=== PATIENT | male | born 1940 | race Caucasian/White ===

== ENCOUNTER 2017-04-21 14:19 | Day surgery (SDC) | payer OTHER ==
[2017-04-20 09:42] VITALS: BMI 27.8
[2017-04-21] MEDS ORDERED: mitoMYcin 40 MG/50 ML DISP.SYRIN (FOR OR USE) IC ONE (14:30)
--- NOTE | 2017-04-21 16:38 | HP ---
History & Physical Update - History History: No Change - Physical Physical: No Change - Assessment Assessment: No Change - Plan Plan: No Change
[2017-04-21] MEDS ORDERED: ACETAMINOPHEN 1000 MG/100 ML VIAL (NON FORMULARY) IVPB ONE ×2 (16:40→18:44)
[2017-04-21] MEDS ORDERED: DEXTROSE 5%-0.45% SALINE 1,000 ML IV SCH (16:45)
[2017-04-21] MEDS ORDERED: ceFAZolin SODIUM 1 GM VIAL IVPB ONE (17:22)
[2017-04-21] MEDS ORDERED: METHYLENE BLUE 1% 10 MG/1 ML VIAL IVPUSH ONE (17:39)
[2017-04-21] MEDS ORDERED: ONDANSETRON 4 MG/2 ML VIAL IVPUSH PRN (18:17)
[2017-04-21] MEDS ORDERED: oxyCODONE HCL 5 MG TABLET PO PRN (18:17)
[2017-04-21] MEDS ORDERED: PROMETHAZINE HCL 25 MG/1 ML VIAL IVPUSH PRN (18:17)
[2017-04-21] MEDS ORDERED: ACETAMINOPHEN INJECTION 100 ML IVPB ONE ×2 (18:45→18:46)
[2017-04-21 20:38] VITALS: BP 131/80; PULSE 76; TEMP 98.1
--- NOTE | 2017-04-22 07:58 | OP ---
DATE OF OPERATION: 04/21/2017 PREOPERATIVE DIAGNOSIS: Bladder cancer, left lateral wall, trigone. POSTOPERATIVE DIAGNOSIS: Bladder cancer, left lateral wall, trigone. PROCEDURE: Cystoscopy, transurethral resection of bladder tumor, large; and instillation of Mitomycin. ANESTHESIA: General, Jeffery Gibson MD. ESTIMATED BLOOD LOSS: 20 mL FINDINGS: A large tumor over the left hemitrigone and left lateral wall. SPECIMENS: Bladder tumor and base of bladder tumor. DRAINS: A Huntley catheter. SURGEON: Nathan Douglass MD PREOPERATIVE INDICATIONS: The patient is a 76-year-old male with recently diagnosed, low , medium-grade prostate cancer. During pre-radiating imaging, he was found to have a large bladder tumor. There also was left-sided hydronephrosis on the CT scan. He comes to the OR today for resection. DESCRIPTION OF OPERATION: The patient was brought to the OR, placed on the table in supine position, given general anesthesia and IV antibiotics, and placed in the modified lithotomy position. The groin was prepped and draped sterilely. Cystoscopy was performed. The urethra appeared to be unremarkable. The prostate was mildly enlarged. The bladder itself had mild trabeculations. However, a large tumor was seen overlying the left hemitrigone. The right ureteral orifice was visualized. However, the left ureters could not be seen. Patient was found to have [address] Methylene blue was given. However, no efflux was ever seen. This tumor was resected slowly from its top down to its base. There appeared to be tumor continuing into what appeared to be the distal ureter. Segments of muscle were also resected. Good hemostasis was achieved. No evidence of bladder perforation was noted. Belly remained soft. All pieces were irrigated out. Scope was removed. A Huntley catheter was placed, and through that, 50 mL of 40 mg of Mitomycin in sterile water was instilled, and the Huntley was clamped. Patient was woken up. Genet [id number]
--- NOTE | 2017-04-25 15:26 | PATH ---
Surgical Pathology Report Patient Name: KAREN FUENTES [facility]. Rec. #: [id number] /Age/Gender: 1940 (Age: 76) / M Account: [id number] Location: [facility] SURGICAL Taken: 04/21/2017 Received: 04/24/2017 Reported: 04/25/2017 Physicians: Nathan Douglass M.D. Specimen(s) Received A: BLADDER TUMOR TUR B: BASE OF BLADDER TUMOR Clinical History Bladder tumor Final Diagnosis A. BLADDER TUMOR, TUR: PREDOMINANTLY HIGH GRADE PAPILLARY UROTHELIAL CARCINOMA. LAMINA PROPRIA INVASION: NOT IDENTIFIED. MUSCULARIS PROPRIA (DETRUSOR): PRESENT, FREE OF CARCINOMA. CARCINOMA IN SITU (CIS): NOT IDENTIFIED. B. BASE OF BLADDER TUMOR, TUR: PREDOMINANTLY HIGH GRADE PAPILLARY UROTHELIAL CARCINOMA. LAMINA PROPRIA INVASION: NOT IDENTIFIED MUSCULARIS PROPRIA (DETRUSOR): PRESENT, FREE OF CARCINOMA. CARCINOMA IN SITU (CIS): NOT IDENTIFIED. Comment: The case was discussed with Dr. Douglass on 04/25/17. Electronically Signed Mehran Alva M.D. Gross Description A. Received in formalin labeled "bladder tumor" is a 5.5 x 5.5 x 0.9 cm aggregate of graves soft tissue fragments admixed with blood clot. The formalin is filtered and the specimen is entirely submitted in 6 cassettes. B. Received in formalin labeled "base of bladder tumor" is a 1.9 x 1.8 x 0.3 cm aggregate of graves soft tissue fragments. The formalin is filtered and the specimen is entirely submitted in one cassette. 04/24/2017 saudi04/24/2017
== END 2017-04-21 23:46 | disposition home or self-care (01) ==
LOC: JASU-SURG 14:19 → J6S 20:30 → JASU-SURG 23:46
PROVIDERS: ATTEND Urology
PROC: 3E0M705 Introduction of Other Antineoplastic into Peritoneal Cavity, Via Natural or Artificial Opening (ICD-10-PCS; 2017-04-21)
PROC: 0TBB8ZX Excision of Bladder, Via Natural or Artificial Opening Endoscopic, Diagnostic (ICD-10-PCS; principal; 2017-04-21 16:00)
DX: C67.8 Malignant neoplasm of overlapping sites of bladder (principal)
CPT/HCPCS: 51720; 52240; J9280; 88307-TC; 94760

== ENCOUNTER 2018-01-10 10:25 | Day surgery (SDC) | payer OTHER ==
[2018-01-09 09:15] VITALS: BMI 25.7
--- NOTE | 2018-01-10 11:43 | HP ---
[facility] - Chief Complaint Chief Complaint: bladder cancer, hydronephrosis History of Present Illness: h/o bladder tumor obstructing his left ureter with hydronephrosis. He is here for TURBT and stent change History Source: Patient, Medical Record Limitations to Obtaining History: No Limitations - Past Medical History Allergies/Adverse Reactions: Allergies Allergy/AdvReac Type Severity Reaction Status Date / Time No Known Allergies Allergy Verified 01/10/18 10:50 Pulmonary: No: Asthma, Bronchitis, Cancer, COPD, O2 Dependent, Pneumonia, Previously Intubated, Pulmonary Embolus, Pulmonary Fibrosis, Sleep Apnea, Other Gastrointestinal: No: Ascites, Cancer, Constipation, Crohn's Disease, Diverticulitis, Diverticulosis, Esophageal Varices, Gastritis, GERD, GI Bleed, Hemorrhoids, Hiatal Hernia, Inflamatory Bowel Disease, Irritable Bowel Disease, Pancreatitis, Peptic Ulcer Disease, Ulcerative Colitis, Other Hepatobiliary: Yes: Other (liver mass) Renal/: Yes: Cancer (prostate cancer) Heme/Onc: Yes: Cancer (pancreatic) - Current Medications Current Medications: Home Medications Medication Instructions Recorded Amlodipine Besylate 10 mg PO DAILY 01/09/18 Amoxicillin/Potassium Clav 1 each PO BID 01/09/18 [Amox-Clav 875-125 mg Tablet] [facility] Physical Exam - Physical Examination Vital Signs: Vital Signs Period Temp Pulse Resp BP Sys/Barrios Pulse Ox Last 24 Hr 97.8 F 70 18 138/85 97 General Appearance: Well Nourished, Well Developed, Alert & Oriented x3 ENT: Clear, No Discharge, No masses Lung: Clear to auscultation Abdomen: Soft, No tenderness, No CVA Extremities: No edema, No tenderness/swelling Neurological: Intact, Alert, Oriented [facility] Impression/Plan - Impression/Plan Impression: bladder cancer, hydronephrosis. Operative Procedure: cystoscopy and TURBT, retrograde pyelogram Date to be Performed: 01/10/18
[2018-01-10] MEDS ORDERED: PROPOFOL 20 ML ONE (11:46)
[2018-01-10] MEDS ORDERED: ACETAMINOPHEN 1000 MG/100 ML VIAL (NON FORMULARY) IVPB ONE (11:48)
[2018-01-10] MEDS ORDERED: ceFAZolin SODIUM 1 GM VIAL ONE (11:56)
[2018-01-10] MEDS ORDERED: DEXTROSE 5%-0.45% SALINE 1,000 ML IV SCH (12:00)
[2018-01-10] MEDS ORDERED: IBUPROFEN 800 MG/8 ML IJ IVPB SCH (12:00)
[2018-01-10] MEDS ORDERED: ceFAZolin SODIUM 1 GM VIAL IVPB ONE (12:04)
[2018-01-10] MEDS ORDERED: DEXAMETHASONE SOD PHOSPHATE 4 MG/1 ML VIAL ONE (12:36)
[2018-01-10] MEDS ORDERED: ACETAMINOPHEN INJECTION 100 ML IVPB ONE (13:23)
[2018-01-10] MEDS ORDERED: ONDANSETRON 4 MG/2 ML VIAL IVPUSH PRN (14:13)
[2018-01-10] MEDS ORDERED: PROMETHAZINE HCL 25 MG/1 ML VIAL IVPB PRN (14:13)
[2018-01-10] MEDS ORDERED: MEPERIDINE HCL CARPU-JECT 25 MG/1 ML DISP.SYRIN IVPUSH ONE (14:15)
[2018-01-10] MEDS ORDERED: LACTATED RINGERS SOLUTION 1,000 ML IV SCH (14:15)
[2018-01-10 16:41] VITALS: TEMP 97.7
[2018-01-10 17:32] VITALS: BP 144/86; PULSE 78
--- NOTE | 2018-01-11 14:26 | PATH ---
Surgical Pathology Report Patient Name: KAREN FUENTES Med. Rec. #: [id number] /Age/Gender: 1940 (Age: 77) / M Account: [id number] Location: [facility] SURGICAL Taken: 01/10/2018 Received: 01/10/2018 Reported: 01/11/2018 Physicians: Nathan Douglass M.D. Specimen(s) Received A: LEFT STENT B: BLADDER TUMOR Clinical History History of prostate cancer, BT hydronephrosis Final Diagnosis A. STENT, LEFT, REMOVAL: URETERAL STENT. MACROSCOPIC DIAGNOSIS. B. URETER, LEFT, BLADDER TUMOR, TRANSURETHRAL RESECTION OF BLADDER TUMOR: HIGH GRADE PAPILLARY UROTHELIAL CARCINOMA, NON-INVASIVE. MUSCULARIS PROPRIA IDENTIFIED. NO FLAT CARCINOMA IN SITU (CIS) IDENTIFIED. Comment: Prior materials are noted. Office of Dr. Douglass informed that significant findings will be faxed ([employer]). Electronically Signed Yamini Levine M.D. Gross Description A. Received fresh labeled "removed stent," is a 37 cm in length white, coiled portion of tubing, consistent with a ureteral stent. No soft tissue is present. No sections are submitted, gross only. B. Received in formalin labeled "bladder tumor of left ureter," is a 1.0 x 0.7 x 0.3 cm aggregate of graves soft tissue fragments admixed with blood clot. The formalin is filtered and the specimen is entirely submitted in one cassette. DL/01/10/2018 saudi/01/10/2018
--- NOTE | 2018-02-19 20:08 | OP ---
DATE OF OPERATION: 01/10/2018 PREOPERATIVE DIAGNOSIS: Bladder cancer. POSTOPERATIVE DIAGNOSIS: Ureteral cancer. PROCEDURE: Cystoscopy, transurethral resection of bladder tumor, removal of stent on the left side. SPECIMEN: Bladder tumor. ESTIMATED BLOOD LOSS: Minimal. PREOPERATIVE INDICATIONS: The patient is a 77-year-old male with a history of metastatic pancreatic cancer; history of high-grade, non-invasive bladder cancer; and a history of untreated, medium-risk prostate cancer. He most recently had a TURBT when he had tumor found around the left ureteral orifice. He has chronic hydronephrosis in the upper pole of the system which had been stented antegrade. He comes for surveillance cystoscopy. 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 OPERATION: The patient was brought to the OR, placed on the table in the supine position, given general anesthesia and IV antibiotics, and placed in the modified lithotomy position. The groin was prepped and draped sterilely. Cystoscopy was performed. A stent was seen emerging from the left ureteral orifice. The stent was removed over a wire. However, the wire could not be passed completely up the ureter. Attempts at re-cannulation of the ureter were unsuccessful. There was an obstruction in the middle third of the ureter. The wire was removed. Tumor was seen emerging from the left ureteral orifice. The rest of the bladder appeared to be without any gross tumor. The area of the ureteral orifice was resected until adequate specimen was obtained. The ureter itself was visualized and had tumor running up it. Bladder was emptied. The patient was woken up. Genet [id number]
== END 2018-01-10 16:30 | disposition home or self-care (01) ==
LOC: JASU-SURG 10:25
PROVIDERS: ATTEND Urology
PROC: 0TBB8ZX Excision of Bladder, Via Natural or Artificial Opening Endoscopic, Diagnostic (ICD-10-PCS; principal; 2018-01-10 12:00)
PROC: 0TP98DZ Removal of Intraluminal Device from Ureter, Via Natural or Artificial Opening Endoscopic (ICD-10-PCS; 2018-01-10 12:00)
DX: C67.9 Malignant neoplasm of bladder, unspecified (principal); C61 Malignant neoplasm of prostate; C78.89 Secondary malignant neoplasm of other digestive organs
CPT/HCPCS: 76000-TC-FY; 88300-TC; 88305-TC; 94760; J0131